=== PATIENT | male | born 1980 | race Caucasian/White ===

== ENCOUNTER 2017-01-24 12:48 | Day surgery (SDC) | payer OTHER ==
[~2017-01-24] VITALS: Ht 193 cm; Wt 102.9 kg
[~2017-01-24 12:48] MED LIST: ACET325 PO; AMOX500 PO; Antivert25 MG PO; BACITO TOP; Benadryl 50 mg50 MG PO; CRUTCH4 USE; CYCL10 PO; Cipro500 MG PO; Culturelle1 CAP PO; DIPATR PO; ERYT.5TO OD; Flagyl500 MG PO; HYDACE25S PR; HYDACE5 PO; HYDR1TAB94 PO; IBUP600 PO; IBUP800 PO; INDO25 PO; LEVFLO500 PO; LEVO750 PO; LOPE2C PO; METR500 PO; NAPR500 PO; NAPR500EC PO; NAPR550 PO; OFLO.3OPSO OP; ONDA8ODT MM; OXYACE5T PO; PENVK500 PO; PRED20 PO; PROACE100 PO; PROCODE120 PO; Percocet 5-3251 EACH PO; QUET25 PO; RXDIPATR PO; RXHYDACE PO; RXNAPNA550 PO; RXPROACE PO; SULTRISS PO; TRAM50 PO; Ultram50 MG PO; Zofran Odt4 MG SL; Zofran4 MG PO; [UNRECOGNIZED DRUG - OTHER]
--- NOTE | 2017-01-24 13:32 | NUR ---
01/24/17 1332 Jayla Tamayo 1 MISSED IV IN RH BY [facility] VALVE 1 GOOD IV IN RAC B Y [facility] PT TOW
[2017-01-24 15:44] LABS: Adenovirus F 40/41 Not Detected (NOT DETECT); Astrovirus Not Detected (NOT DETECT); Campylobacter Sp Not Detected (NOT DETECT); Cryptosporidium Not Detected (NOT DETECT); Cyclospora Cayetanensis Not Detected (NOT DETECT); E. Coli O157 Not Detected (NOT DETECT); Entamoeba Histolytica Not Detected (NOT DETECT); Enteroaggregative E. coli-EAEC Not Detected (NOT DETECT); Enteropathogenic E. coli-EPEC Not Detected (NOT DETECT); Enterotoxigenic E. coli-ETEC Not Detected (NOT DETECT); Giardia Lamblia Not Detected (NOT DETECT); Norovirus GI/GII Not Detected (NOT DETECT); Plesiomonas Shigelloides Not Detected (NOT DETECT); Rotavirus A Not Detected (NOT DETECT); Salmonella Sp Not Detected (NOT DETECT); Sapovirus Not Detected (NOT DETECT); Shiga Toxin-prod E. coli-STEC Not Detected (NOT DETECT); Shigella/Enteroin E. coli-EIEC Not Detected (NOT DETECT); Vibrio Cholerae Not Detected (NOT DETECT); Vibrio Sp Not Detected (NOT DETECT); Yersinia Enterocolitica Not Detected (NOT DETECT)
[2017-02-04] MEDS ORDERED: IBUP800 PO (21:56)
[2017-02-09] MEDS ORDERED: SERT25 PO (14:24)
== END 2017-01-24 15:15 | disposition home or self-care (01) ==
LOC: ORSCSDS 12:48
PROVIDERS: Internal Medicine Gastroenterology
PROC: 0DBE8ZX Excision of Large Intestine, Via Natural or Artificial Opening Endoscopic, Diagnostic (ICD-10-PCS; principal; 2017-01-24 14:00)
DX: K52.9 Noninfective gastroenteritis and colitis, unspecified (principal); K64.8 Other hemorrhoids; F17.210 Nicotine dependence, cigarettes, uncomplicated
CPT/HCPCS: 83993; 87507; 88305; J7120

== ENCOUNTER 2018-03-11 18:46 | Emergency (ER) | payer BC ==
[~2018-03-11] VITALS: Ht 193 cm; Wt 117.9 kg
[~2018-03-11 18:46] MED LIST changes: +SERT25 PO
[2018-03-11] MEDS ORDERED: ADAL40PEN (18:56)
[2018-03-11 20:51] LABS: BASOPHILS ABSOLUTE AUTO 0.04 K/mm3 (0.00-0.23); BASOPHILS PERCENT AUTO 0 % (0-2); EOSINOPHILS ABSOLUTE AUTO 0.27 K/mm3 (0.00-0.68); EOSINOPHILS PERCENT AUTO 3 % (0-6); Hemoglobin 12.8 g/dL (13.5-17.5); IMMATURE GRAN ABSOLUTE AUTO 0.01 K/mm3 (0.00-0.10); IMMATURE GRAN PERCENT AUTO 0 % (0-1); LYMPHOCYTES PERCENT AUTO 38 % (21-46); MONOCYTES ABSOLUTE AUTO 0.59 K/mm3 (0.16-1.47); MONOCYTES PERCENT AUTO 7 % (4-13); Mean Corpuscular HGB 30.9 pg (26.0-34.0); Mean Corpuscular HGB Conc 32.8 g/dL (31.5-36.5); Mean Corpuscular Volume 94 fL (80-100); Mean Platelet Volume 9.5 fL (9.1-12.4); NEUTROPHILS ABSOLUTE AUTO 4.64 K/mm3 (1.96-9.15); NEUTROPHILS PERCENT AUTO 52 % (41-73); Platelet Count 277 K/mm3 (150-400); RDW Coefficient Variation 13.2 % (11.7-14.2); RDW Standard Deviation 45.6 fL (35.1-46.3); Red Blood Cell Count 4.14 M/mm3 (4.30-5.90); White Blood Cell Count 8.95 K/mm3 (4.00-11.30)
[2018-03-11 21:08] LABS: Alanine Aminotransfer (ALT/SGP 34 U/L (12-78); Albumin, Blood 3.6 g/dL (3.4-5.0); Albumin/Globulin Ratio 1.1 (0.8-1.8); Alk Phos 67 U/L (50-136); Anion Gap 7 mmol/L (6-16); Aspartate Aminotrans (AST/SGOT 20 U/L (12-37); Bilirubin, Total 0.1 mg/dL (0.1-1.0); Blood Urea Nitrogen 7 mg/dL (8-24); CO2, Blood 26 mmol/L (21-32); Calcium, Blood 8.2 mg/dL (8.5-10.1); Chloride, Blood 105 mmol/L (98-108); Creatinine, Blood 0.88 mg/dL (0.60-1.20); Globulin, Blood 3.4 g/dL (2.2-4.0); Glomerular Filtration Rate >60 (60-); Glucose, Blood 110 mg/dL (70-99); Potassium, Blood 3.8 mmol/L (3.5-5.5); Sodium, Blood 138 mmol/L (136-145)
[2018-03-11] MEDS ORDERED: RECTICARE30 GM PR (22:00)
[2018-03-11] MEDS ORDERED: Norco 5-325 Ta1 EACH PO (22:00)
[2018-03-11] MEDS ORDERED: IBUP800 PO (22:00)
== END 2018-03-11 22:28 | disposition home or self-care (01) ==
LOC: ER 18:46
PROVIDERS: Emergency Medicine
DX: K64.4 Residual hemorrhoidal skin tags (principal); Z79.899 Other long term (current) drug therapy; Z88.8 Allergy status to other drugs, medicaments and biological substances; F17.210 Nicotine dependence, cigarettes, uncomplicated
CPT/HCPCS: 36415; 72193; 80053; 85025; 96374; 96375; 99283-25; J1170; J2405; Q9967

== ENCOUNTER 2018-09-21 14:22 | Emergency (ER) | payer OTHER ==
[~2018-09-21] VITALS: Ht 193 cm; Wt 117.9 kg
[~2018-09-21 14:22] MED LIST changes: +ADAL40PEN; +Norco 5-325 Ta1 EACH PO; +RECTICARE30 GM PR
[2018-09-21 15:00] LABS: BASOPHILS ABSOLUTE AUTO 0.07 K/mm3 (0.00-0.23); BASOPHILS PERCENT AUTO 1 % (0-2); EOSINOPHILS ABSOLUTE AUTO 0.36 K/mm3 (0.00-0.68); EOSINOPHILS PERCENT AUTO 3 % (0-6); Hematocrit 40.5 % (37.0-53.0); Hemoglobin 13.3 g/dL (13.5-17.5); IMMATURE GRAN ABSOLUTE AUTO 0.09 K/mm3 (0.00-0.10); IMMATURE GRAN PERCENT AUTO 1 % (0-1); LYMPHOCYTES ABSOLUTE AUTO 2.91 K/mm3 (0.84-5.20); LYMPHOCYTES PERCENT AUTO 20 % (21-46); MONOCYTES ABSOLUTE AUTO 1.04 K/mm3 (0.16-1.47); MONOCYTES PERCENT AUTO 7 % (4-13); Mean Corpuscular HGB 30.4 pg (26.0-34.0); Mean Corpuscular HGB Conc 32.8 g/dL (31.5-36.5); Mean Corpuscular Volume 93 fL (80-100); Mean Platelet Volume 9.4 fL (9.1-12.4); NEUTROPHILS PERCENT AUTO 70 % (41-73); Platelet Count 404 K/mm3 (150-400); RDW Coefficient Variation 13.2 % (11.7-14.2); RDW Standard Deviation 45.3 fL (35.1-46.3); Red Blood Cell Count 4.38 M/mm3 (4.30-5.90); White Blood Cell Count 14.67 K/mm3 (4.00-11.30)
[2018-09-21 15:21] LABS: Source, Urine Clean Catch
[2018-09-21 15:27] LABS: Alanine Aminotransfer (ALT/SGP 30 U/L (12-78); Albumin, Blood 3.6 g/dL (3.4-5.0); Albumin/Globulin Ratio 0.8 (0.8-1.8); Alk Phos 84 U/L (50-136); Anion Gap 4 mmol/L (6-16); Aspartate Aminotrans (AST/SGOT 23 U/L (12-37); Bilirubin, Total 0.3 mg/dL (0.1-1.0); Blood Urea Nitrogen 7 mg/dL (8-24); Bun/Creatinine Ratio 8.9 (12.0-20.0); CO2, Blood 27 mmol/L (21-32); Calcium, Blood 8.8 mg/dL (8.5-10.1); Chloride, Blood 106 mmol/L (98-108); Creatinine, Blood 0.79 mg/dL (0.60-1.20); Globulin, Blood 4.6 g/dL (2.2-4.0); Glomerular Filtration Rate >60 (60-); Glucose, Blood 89 mg/dL (70-99); Potassium, Blood 3.9 mmol/L (3.5-5.5); Sodium, Blood 137 mmol/L (136-145); Total Protein, Blood 8.2 g/dL (6.4-8.2)
[2018-09-21 15:41] LABS: Bilirubin, Urine Neg (Neg); Blood, Urine 2+ (Neg); Glucose Qualitative, Urine Neg (Neg); Ketones, Urine Neg (Neg); Leukocyte Esterase, Urine Neg (Neg); Nitrite, Urine Neg (Neg); Protein, Urine Neg (Neg); Specific Gravity, Urine 1.015 (1.003-1.022); Urobilinogen, Urine NORM (Normal)
[2018-09-21 16:03] LABS: Appearance, Urine Clear (Clear); Color, Urine Yellow (P-Yellow)
[2018-09-21 16:05] LABS: Bacteria Rare /hpf; Red Blood Cells, Urine 0-2 /hpf (0-2); Squamous Epithelial Cells Rare /hpf (Few); White Blood Cells, Urine 0-2 /hpf (0-5)
[2018-09-21] MEDS ORDERED: BUDESONIDE EC3 MG PO (18:36)
[2018-09-21] MEDS ORDERED: METR500 PO (18:36)
[2018-09-21] MEDS ORDERED: CIPR500 PO (18:36)
[2018-09-21] MEDS ORDERED: ONDA4ODT MM (18:36)
== END 2018-09-21 19:06 | disposition home or self-care (01) ==
LOC: ER 14:22
PROVIDERS: Physician Assistant
DX: K50.90 Crohn's disease, unspecified, without complications (principal); F31.9 Bipolar disorder, unspecified; Z88.8 Allergy status to other drugs, medicaments and biological substances; Z91.030 Bee allergy status
CPT/HCPCS: 36415; 76705; 80053; 81001; 83690; 85025; 96361; 96374; 96375; 99284-25; A9270-GY; J1170; J2405; J7030

== ENCOUNTER 2018-10-06 19:31 | Emergency (ER) | payer OTHER ==
[~2018-10-06] VITALS: Ht 193 cm; Wt 117.9 kg
[~2018-10-06 19:31] MED LIST changes: +BUDESONIDE EC3 MG PO; +CIPR500 PO; +ONDA4ODT MM
[2018-10-06 21:07] LABS: BASOPHILS ABSOLUTE AUTO 0.07 K/mm3 (0.00-0.23); BASOPHILS PERCENT AUTO 1 % (0-2); EOSINOPHILS ABSOLUTE AUTO 0.27 K/mm3 (0.00-0.68); EOSINOPHILS PERCENT AUTO 2 % (0-6); Hematocrit 39.6 % (37.0-53.0); Hemoglobin 12.6 g/dL (13.5-17.5); IMMATURE GRAN ABSOLUTE AUTO 0.08 K/mm3 (0.00-0.10); IMMATURE GRAN PERCENT AUTO 1 % (0-1); LYMPHOCYTES ABSOLUTE AUTO 2.99 K/mm3 (0.84-5.20); LYMPHOCYTES PERCENT AUTO 22 % (21-46); MONOCYTES ABSOLUTE AUTO 1.44 K/mm3 (0.16-1.47); MONOCYTES PERCENT AUTO 11 % (4-13); Mean Corpuscular HGB 29.8 pg (26.0-34.0); Mean Corpuscular HGB Conc 31.8 g/dL (31.5-36.5); Mean Corpuscular Volume 94 fL (80-100); Mean Platelet Volume 9.3 fL (9.1-12.4); NEUTROPHILS PERCENT AUTO 65 % (41-73); Platelet Count 417 K/mm3 (150-400); RDW Coefficient Variation 13.9 % (11.7-14.2); RDW Standard Deviation 47.6 fL (35.1-46.3); Red Blood Cell Count 4.23 M/mm3 (4.30-5.90); White Blood Cell Count 13.75 K/mm3 (4.00-11.30)
[2018-10-06 21:22] LABS: Alanine Aminotransfer (ALT/SGP 27 U/L (12-78); Albumin, Blood 3.5 g/dL (3.4-5.0); Albumin/Globulin Ratio 0.8 (0.8-1.8); Alk Phos 85 U/L (50-136); Anion Gap 9 mmol/L (6-16); Aspartate Aminotrans (AST/SGOT 14 U/L (12-37); Bilirubin, Total 0.2 mg/dL (0.1-1.0); Blood Urea Nitrogen 5 mg/dL (8-24); Bun/Creatinine Ratio 6.8 (12.0-20.0); CO2, Blood 26 mmol/L (21-32); Calcium, Blood 8.6 mg/dL (8.5-10.1); Chloride, Blood 103 mmol/L (98-108); Creatinine, Blood 0.74 mg/dL (0.60-1.20); Globulin, Blood 4.5 g/dL (2.2-4.0); Glomerular Filtration Rate >60 (60-); Glucose, Blood 81 mg/dL (70-99); Sodium, Blood 138 mmol/L (136-145)
[2018-10-06 23:35] LABS: Source, Urine Voided
[2018-10-06 23:44] LABS: Bilirubin, Urine Neg (Neg); Blood, Urine 1+ (Neg); Glucose Qualitative, Urine Neg (Neg); Ketones, Urine Neg (Neg); Leukocyte Esterase, Urine Neg (Neg); Nitrite, Urine Neg (Neg); Protein, Urine Neg (Neg); Urobilinogen, Urine NORM (Normal); pH, Urine 6.5 (5.0-8.0)
[2018-10-06 23:56] LABS: Appearance, Urine Clear (Clear); Color, Urine Yellow (P-Yellow)
[2018-10-06 23:57] LABS: Bacteria Not Seen /hpf; Red Blood Cells, Urine 0-2 /hpf (0-2); Squamous Epithelial Cells Not Seen /hpf (Few); White Blood Cells, Urine Not Seen /hpf (0-5)
[2018-10-07] MEDS ORDERED: Bentyl20 MG PO (01:11)
[2018-10-07] MEDS ORDERED: Percocet 5-3251 EACH PO (01:11)
== END 2018-10-07 01:56 | disposition home or self-care (01) ==
LOC: ER 19:31
PROVIDERS: Emergency Medicine
DX: K52.9 Noninfective gastroenteritis and colitis, unspecified (principal); Z91.030 Bee allergy status; Z88.8 Allergy status to other drugs, medicaments and biological substances; Z79.899 Other long term (current) drug therapy; Z87.891 Personal history of nicotine dependence
CPT/HCPCS: 36415; 74177; 80053; 81001; 83605; 83690; 85025; 96361; 96374-59; 96375; 96376; 99284-25; J0500; J1885; J2270; J2405; J2930; J7030; Q9967

== ENCOUNTER 2018-11-17 18:23 | Emergency (ER) | payer OTHER ==
[~2018-11-17] VITALS: Ht 185.4 cm; Wt 117.9 kg
[~2018-11-17 18:23] MED LIST changes: +Bentyl20 MG PO
[2018-11-17] MEDS ORDERED: CYCL10 PO (19:45)
[2018-11-17] MEDS ORDERED: DELTASONE20 MG PO (19:45)
== END 2018-11-17 20:09 | disposition home or self-care (01) ==
LOC: ER 18:23
DX: G89.29 Other chronic pain (principal); M54.5 Low back pain; M54.6 Pain in thoracic spine; F17.210 Nicotine dependence, cigarettes, uncomplicated; Z91.030 Bee allergy status; Z88.8 Allergy status to other drugs, medicaments and biological substances
CPT/HCPCS: 96372; 99283-25; J1885; J7512

== ENCOUNTER 2019-01-04 00:34 | Day surgery (SDC) | payer OTHER ==
[~2019-01-04 00:34] MED LIST changes: +DELTASONE20 MG PO
== END 2019-01-04 16:44 | disposition home or self-care (01) ==
LOC: ATC 00:34
DX: K50.90 Crohn's disease, unspecified, without complications (principal); Z87.891 Personal history of nicotine dependence; Z88.8 Allergy status to other drugs, medicaments and biological substances
CPT/HCPCS: A9270; J1720; J7050; Q0163; Q5103

== ENCOUNTER 2019-03-04 00:13 | Day surgery (SDC) | payer OTHER | END 2019-03-04 16:55 | disposition home or self-care (01) | LOC: ATC 00:13 | DX: K50.10 Crohn's disease of large intestine without complications (principal); Z79.52 Long term (current) use of systemic steroids; Z79.899 Other long term (current) drug therapy; Z88.8 Allergy status to other drugs, medicaments and biological substances; Z91.030 Bee allergy status; Z87.891 Personal history of nicotine dependence | CPT/HCPCS: 96375; 96413; 96415; A9270; J0171; J1720; J7050; J7512; Q0163; Q5103 ==

== ENCOUNTER 2019-07-08 20:21 | Emergency (ER) | payer BC, OTHER ==
[2019-07-08] MEDS ORDERED: ATHLETIC FOOT C30 GM TOP (22:10)
[2019-07-08] MEDS ORDERED: CEPH500 PO (22:10)
== END 2019-07-08 22:28 | disposition home or self-care (01) ==
DX: B35.1 Tinea unguium (principal); B35.3 Tinea pedis; F17.210 Nicotine dependence, cigarettes, uncomplicated; Z91.030 Bee allergy status; Z88.8 Allergy status to other drugs, medicaments and biological substances

== ENCOUNTER 2019-11-29 01:41 | Day surgery (SDC) | payer BC, OTHER ==
[~2019-11-29 01:41] MED LIST changes: +ATHLETIC FOOT C30 GM TOP; +CEPH500 PO; +INFLECTRA100 MG PO
--- NOTE | 2019-11-29 09:24 | NUR ---
BENEDRYL: 25MG IV PUSH GIVEN NOT 50MG IV SEEN ON EMAR
[2019-11-29] MEDS ORDERED: Remicade100 MG (09:31)
== END 2019-11-29 12:00 | disposition home or self-care (01) ==
LOC: ATC 01:41
DX: K50.10 Crohn's disease of large intestine without complications (principal); Z87.891 Personal history of nicotine dependence; Z88.8 Allergy status to other drugs, medicaments and biological substances
CPT/HCPCS: 96375; 96413; 96415; A9270; J1200; J7050; Q5103

== ENCOUNTER 2019-12-13 01:59 | Day surgery (SDC) | payer BC, OTHER ==
[~2019-12-13 01:59] MED LIST changes: +Remicade100 MG
[2019-12-13 08:57] LABS: BASOPHILS ABSOLUTE AUTO 0.06 K/mm3 (0.00-0.23); BASOPHILS PERCENT AUTO 1 % (0-2); EOSINOPHILS ABSOLUTE AUTO 0.23 K/mm3 (0.00-0.68); EOSINOPHILS PERCENT AUTO 3 % (0-6); Hematocrit 38.5 % (37.0-53.0); Hemoglobin 12.6 g/dL (13.5-17.5); IMMATURE GRAN ABSOLUTE AUTO 0.02 K/mm3 (0.00-0.10); IMMATURE GRAN PERCENT AUTO 0 % (0-1); LYMPHOCYTES ABSOLUTE AUTO 3.22 K/mm3 (0.84-5.20); LYMPHOCYTES PERCENT AUTO 38 % (21-46); MONOCYTES ABSOLUTE AUTO 0.58 K/mm3 (0.16-1.47); MONOCYTES PERCENT AUTO 7 % (4-13); Mean Corpuscular HGB 29.7 pg (26.0-34.0); Mean Corpuscular HGB Conc 32.7 g/dL (31.5-36.5); Mean Corpuscular Volume 91 fL (80-100); Mean Platelet Volume 9.5 fL (9.1-12.4); NEUTROPHILS ABSOLUTE AUTO 4.36 K/mm3 (1.96-9.15); NEUTROPHILS PERCENT AUTO 52 % (41-73); Platelet Count 292 K/mm3 (150-400); RDW Coefficient Variation 13.5 % (11.7-14.2); RDW Standard Deviation 44.8 fL (35.1-46.3); Red Blood Cell Count 4.24 M/mm3 (4.30-5.90); White Blood Cell Count 8.47 K/mm3 (4.00-11.30)
[2019-12-13 09:16] LABS: Alanine Aminotransfer (ALT/SGP 48 U/L (12-78); Albumin, Blood 3.9 g/dL (3.4-5.0); Albumin/Globulin Ratio 1.1 (0.8-1.8); Alk Phos 74 U/L (50-136); Anion Gap 6 mmol/L (6-16); Aspartate Aminotrans (AST/SGOT 23 U/L (12-37); Bilirubin, Total 0.3 mg/dL (0.1-1.0); Blood Urea Nitrogen 10 mg/dL (8-24); Bun/Creatinine Ratio 13.5 (12.0-20.0); CO2, Blood 25 mmol/L (21-32); Calcium, Blood 8.6 mg/dL (8.5-10.1); Chloride, Blood 108 mmol/L (98-108); Creatinine, Blood 0.74 mg/dL (0.60-1.20); Globulin, Blood 3.6 g/dL (2.2-4.0); Glomerular Filtration Rate >60 (60-); Glucose, Blood 96 mg/dL (70-99); Potassium, Blood 3.5 mmol/L (3.5-5.5); Sodium, Blood 139 mmol/L (136-145); Total Protein, Blood 7.5 g/dL (6.4-8.2)
== END 2019-12-13 12:05 | disposition home or self-care (01) ==
LOC: ATC 01:59
PROVIDERS: Internal Medicine Gastroenterology
DX: K50.919 Crohn's disease, unspecified, with unspecified complications (principal); F17.200 Nicotine dependence, unspecified, uncomplicated; Z79.899 Other long term (current) drug therapy; Z88.8 Allergy status to other drugs, medicaments and biological substances; Z91.048 Other nonmedicinal substance allergy status
CPT/HCPCS: 80053; 85025; 96375; 96413; A9270; J1200; J1745; J7050; Q5103

== ENCOUNTER 2020-07-27 19:23 | Inpatient (IN) | payer OTHER ==
[~2020-07-27] VITALS: Ht 193 cm; Wt 127.9 kg
[2020-07-27 19:53] LABS: BASOPHILS ABSOLUTE AUTO 0.06 K/mm3 (0.00-0.23); BASOPHILS PERCENT AUTO 1 % (0-2); EOSINOPHILS ABSOLUTE AUTO 0.27 K/mm3 (0.00-0.68); EOSINOPHILS PERCENT AUTO 2 % (0-6); Hematocrit 38.6 % (37.0-53.0); Hemoglobin 13.1 g/dL (13.5-17.5); IMMATURE GRAN ABSOLUTE AUTO 0.06 K/mm3 (0.00-0.10); IMMATURE GRAN PERCENT AUTO 1 % (0-1); LYMPHOCYTES ABSOLUTE AUTO 3.17 K/mm3 (0.84-5.20); LYMPHOCYTES PERCENT AUTO 24 % (21-46); MONOCYTES ABSOLUTE AUTO 0.81 K/mm3 (0.16-1.47); MONOCYTES PERCENT AUTO 6 % (4-13); Mean Corpuscular HGB Conc 33.9 g/dL (31.5-36.5); Mean Corpuscular Volume 88 fL (80-100); Mean Platelet Volume 9.4 fL (9.1-12.4); NEUTROPHILS ABSOLUTE AUTO 8.89 K/mm3 (1.96-9.15); NEUTROPHILS PERCENT AUTO 67 % (41-73); Platelet Count 310 K/mm3 (150-400); RDW Coefficient Variation 13.5 % (11.7-14.2); Red Blood Cell Count 4.37 M/mm3 (4.30-5.90); White Blood Cell Count 13.26 K/mm3 (4.00-11.30)
[2020-07-27 20:30] LABS: Alanine Aminotransfer (ALT/SGP 37 U/L (12-78); Albumin, Blood 3.8 g/dL (3.4-5.0); Albumin/Globulin Ratio 0.9 (0.8-1.8); Alk Phos 70 U/L (50-136); Anion Gap 8 mmol/L (6-16); Aspartate Aminotrans (AST/SGOT 20 U/L (12-37); Bilirubin, Total 0.2 mg/dL (0.1-1.0); Blood Urea Nitrogen 6 mg/dL (8-24); Bun/Creatinine Ratio 7.4 (12.0-20.0); CO2, Blood 26 mmol/L (21-32); Calcium, Blood 8.4 mg/dL (8.5-10.1); Chloride, Blood 101 mmol/L (98-108); Creatinine, Blood 0.81 mg/dL (0.60-1.20); Globulin, Blood 4.1 g/dL (2.2-4.0); Glomerular Filtration Rate >60 (60-); Glucose, Blood 152 mg/dL (70-99); Potassium, Blood 3.1 mmol/L (3.5-5.5); Sodium, Blood 135 mmol/L (136-145); Total Protein, Blood 7.9 g/dL (6.4-8.2)
[2020-07-27] MEDS ORDERED: HUMIRA PEN40 MG/0.2 SQ (21:12)
[2020-07-27] MEDS ORDERED: DULO30 PO (21:14)
[2020-07-27] MEDS ORDERED: IBU800 M1 PO (22:03)
[2020-07-27] MEDS ORDERED: ZEBUTAL PO (22:03)
[2020-07-27 22:18] LABS: Appearance, CSF Clear (Clear); Color, CSF No Color (No Color); RBC Count, CSF 4 /mm3 (0-0); WBC Count, CSF 112 /mm3 (0-5)
[2020-07-27 22:21] LABS: Glucose, CSF 68 mg/dL (40-70)
[2020-07-27 22:26] LABS: RBC Count, CSF 16 /mm3 (0-0); WBC Count, CSF 57 /mm3 (0-5)
[2020-07-27 22:27] LABS: Appearance, CSF Clear (Clear); Color, CSF No Color (No Color)
[2020-07-27 22:29] LABS: Lymphocytes, CSF 64 % (40-80); Monocytes, CSF 31 % (15-45); Neutrophils, CSF 5 % (0-6)
[2020-07-27 22:31] LABS: Lymphocytes, CSF 48 % (40-80); Monocytes, CSF 48 % (15-45); Neutrophils, CSF 4 % (0-6)
[2020-07-28 01:30] LABS: Cryptococcus Neoformans/Gattii Not Detected (NOT DETECT); Enterovirus Not Detected (NOT DETECT); Escherichia Coli K1 Not Detected (NOT DETECT); Haemophilus Influenza Not Detected (NOT DETECT); Herpes Simplex Virus 1 Not Detected (NOT DETECT); Herpes Simplex Virus 2 Detected (NOT DETECT); Human Herpesvirus 6 Not Detected (NOT DETECT); Human Parechovirus Not Detected (NOT DETECT); Listeria Monocytogenes Not Detected (NOT DETECT); Neisseria Meningitidis Not Detected (NOT DETECT); Streptococcus Agalactiae Not Detected (NOT DETECT); Streptococcus Pneumoniae Not Detected (NOT DETECT); Varicella Zoster Virus Not Detected (NOT DETECT)
[2020-07-28 08:01] LABS: BASOPHILS ABSOLUTE AUTO 0.01 K/mm3 (0.00-0.23); BASOPHILS PERCENT AUTO 0 % (0-2); EOSINOPHILS ABSOLUTE AUTO 0.01 K/mm3 (0.00-0.68); EOSINOPHILS PERCENT AUTO 0 % (0-6); Hematocrit 38.8 % (37.0-53.0); Hemoglobin 12.6 g/dL (13.5-17.5); IMMATURE GRAN ABSOLUTE AUTO 0.05 K/mm3 (0.00-0.10); IMMATURE GRAN PERCENT AUTO 0 % (0-1); LYMPHOCYTES PERCENT AUTO 9 % (21-46); MONOCYTES ABSOLUTE AUTO 0.17 K/mm3 (0.16-1.47); MONOCYTES PERCENT AUTO 1 % (4-13); Mean Corpuscular HGB 29.6 pg (26.0-34.0); Mean Corpuscular HGB Conc 32.5 g/dL (31.5-36.5); Mean Corpuscular Volume 91 fL (80-100); Mean Platelet Volume 9.7 fL (9.1-12.4); NEUTROPHILS ABSOLUTE AUTO 11.15 K/mm3 (1.96-9.15); NEUTROPHILS PERCENT AUTO 89 % (41-73); Platelet Count 288 K/mm3 (150-400); RDW Coefficient Variation 13.4 % (11.7-14.2); RDW Standard Deviation 44.6 fL (35.1-46.3); Red Blood Cell Count 4.26 M/mm3 (4.30-5.90); White Blood Cell Count 12.49 K/mm3 (4.00-11.30)
[2020-07-28 08:39] LABS: Alanine Aminotransfer (ALT/SGP 34 U/L (12-78); Albumin, Blood 3.5 g/dL (3.4-5.0); Albumin/Globulin Ratio 0.9 (0.8-1.8); Alk Phos 63 U/L (50-136); Anion Gap 5 mmol/L (6-16); Aspartate Aminotrans (AST/SGOT 17 U/L (12-37); Bilirubin, Total 0.4 mg/dL (0.1-1.0); Blood Urea Nitrogen 6 mg/dL (8-24); Bun/Creatinine Ratio 8.2 (12.0-20.0); CO2, Blood 24 mmol/L (21-32); Calcium, Blood 8.3 mg/dL (8.5-10.1); Chloride, Blood 105 mmol/L (98-108); Creatinine, Blood 0.74 mg/dL (0.60-1.20); Globulin, Blood 3.9 g/dL (2.2-4.0); Glomerular Filtration Rate >60 (60-); Glucose, Blood 175 mg/dL (70-99); Potassium, Blood 4.2 mmol/L (3.5-5.5); Sodium, Blood 134 mmol/L (136-145); Total Protein, Blood 7.4 g/dL (6.4-8.2)
[2020-08-02 04:50] LABS: BASOPHILS ABSOLUTE AUTO 0.05 K/mm3 (0.00-0.23); BASOPHILS PERCENT AUTO 1 % (0-2); EOSINOPHILS ABSOLUTE AUTO 0.27 K/mm3 (0.00-0.68); EOSINOPHILS PERCENT AUTO 3 % (0-6); Hematocrit 40.5 % (37.0-53.0); Hemoglobin 13.3 g/dL (13.5-17.5); IMMATURE GRAN ABSOLUTE AUTO 0.12 K/mm3 (0.00-0.10); IMMATURE GRAN PERCENT AUTO 1 % (0-1); LYMPHOCYTES ABSOLUTE AUTO 3.63 K/mm3 (0.84-5.20); LYMPHOCYTES PERCENT AUTO 38 % (21-46); MONOCYTES PERCENT AUTO 9 % (4-13); Mean Corpuscular HGB 29.5 pg (26.0-34.0); Mean Corpuscular HGB Conc 32.8 g/dL (31.5-36.5); Mean Corpuscular Volume 90 fL (80-100); Mean Platelet Volume 9.4 fL (9.1-12.4); NEUTROPHILS ABSOLUTE AUTO 4.69 K/mm3 (1.96-9.15); NEUTROPHILS PERCENT AUTO 49 % (41-73); Platelet Count 267 K/mm3 (150-400); RDW Coefficient Variation 13.3 % (11.7-14.2); RDW Standard Deviation 43.5 fL (35.1-46.3); Red Blood Cell Count 4.51 M/mm3 (4.30-5.90); White Blood Cell Count 9.66 K/mm3 (4.00-11.30)
[2020-08-02 05:13] LABS: Anion Gap 2 mmol/L (6-16); Blood Urea Nitrogen 11 mg/dL (8-24); Bun/Creatinine Ratio 11.3 (12.0-20.0); CO2, Blood 32 mmol/L (21-32); Calcium, Blood 8.7 mg/dL (8.5-10.1); Chloride, Blood 102 mmol/L (98-108); Creatinine, Blood 0.97 mg/dL (0.60-1.20); Glomerular Filtration Rate >60 (60-); Glucose, Blood 99 mg/dL (70-99); Potassium, Blood 4.2 mmol/L (3.5-5.5); Sodium, Blood 136 mmol/L (136-145)
[2020-08-05] MEDS ORDERED: ACET325 PO (13:09)
[2020-08-05] MEDS ORDERED: FENTANYL1 EA10 TOP (13:10)
[2020-08-05] MEDS ORDERED: IBUP400 PO (13:11)
[2020-08-05] MEDS ORDERED: NARCAN4 M1 (13:11)
[2020-08-05] MEDS ORDERED: ACYC800 PO (13:12)
[2020-08-05] MEDS ORDERED: FENTANYL1 EAC7 TOP (13:13)
== END 2020-08-05 13:53 | disposition home or self-care (01) | DRG 75 ==
LOC: ER 19:23 → MEDS 19:24
PROVIDERS: Emergency Medicine; Family Medicine; Physician Assistant; ADMIT Internal Medicine
PROC: 009U3ZX Drainage of Spinal Canal, Percutaneous Approach, Diagnostic (ICD-10-PCS; principal; 2020-07-27)
DX: B00.3 Herpesviral meningitis (principal); K50.90 Crohn's disease, unspecified, without complications; E87.6 Hypokalemia; Z20.822 Contact with and (suspected) exposure to COVID-19; F31.9 Bipolar disorder, unspecified; Z87.891 Personal history of nicotine dependence; F91.3 Oppositional defiant disorder
CPT/HCPCS: 36415; 62270; 70450; 80048; 80053; 82945; 84157; 85025; 86403; 87070; 87205; 87483; 89051; 96365-59; 96366; 96375-59; 96376; 99285-25; A9270; G0378; J0133; J0696; J1100; J1170; J1650; J2765; J7030; J7060

== ENCOUNTER 2020-08-09 20:20 | Observation (INO) | payer OTHER ==
[~2020-08-09] VITALS: Ht 193 cm; Wt 127.8 kg
[~2020-08-09 20:20] MED LIST changes: +ACYC800 PO; +DULO30 PO; +FENTANYL1 EA10 TOP; +FENTANYL1 EAC7 TOP; +HUMIRA PEN40 MG/0.2 SQ; +IBU800 M1 PO; +IBUP400 PO; +NARCAN4 M1; +ZEBUTAL PO
[2020-08-09 21:00] LABS: BASOPHILS ABSOLUTE AUTO 0.04 K/mm3 (0.00-0.23); BASOPHILS PERCENT AUTO 0 % (0-2); EOSINOPHILS ABSOLUTE AUTO 0.18 K/mm3 (0.00-0.68); EOSINOPHILS PERCENT AUTO 2 % (0-6); Hematocrit 40.4 % (37.0-53.0); Hemoglobin 13.7 g/dL (13.5-17.5); IMMATURE GRAN ABSOLUTE AUTO 0.03 K/mm3 (0.00-0.10); IMMATURE GRAN PERCENT AUTO 0 % (0-1); LYMPHOCYTES ABSOLUTE AUTO 0.96 K/mm3 (0.84-5.20); LYMPHOCYTES PERCENT AUTO 9 % (21-46); MONOCYTES ABSOLUTE AUTO 0.65 K/mm3 (0.16-1.47); MONOCYTES PERCENT AUTO 6 % (4-13); Mean Corpuscular HGB 30.3 pg (26.0-34.0); Mean Corpuscular HGB Conc 33.9 g/dL (31.5-36.5); Mean Corpuscular Volume 89 fL (80-100); Mean Platelet Volume 9.2 fL (9.1-12.4); NEUTROPHILS ABSOLUTE AUTO 9.02 K/mm3 (1.96-9.15); NEUTROPHILS PERCENT AUTO 83 % (41-73); Platelet Count 248 K/mm3 (150-400); RDW Standard Deviation 44.9 fL (35.1-46.3); Red Blood Cell Count 4.52 M/mm3 (4.30-5.90); White Blood Cell Count 10.88 K/mm3 (4.00-11.30)
[2020-08-09 21:23] LABS: Alanine Aminotransfer (ALT/SGP 49 U/L (12-78); Albumin, Blood 3.7 g/dL (3.4-5.0); Albumin/Globulin Ratio 0.9 (0.8-1.8); Alk Phos 66 U/L (50-136); Anion Gap 9 mmol/L (6-16); Aspartate Aminotrans (AST/SGOT 28 U/L (12-37); Bilirubin, Total 0.3 mg/dL (0.1-1.0); Blood Urea Nitrogen 12 mg/dL (8-24); Bun/Creatinine Ratio 13.6 (12.0-20.0); CO2, Blood 22 mmol/L (21-32); Calcium, Blood 8.6 mg/dL (8.5-10.1); Chloride, Blood 106 mmol/L (98-108); Creatinine, Blood 0.88 mg/dL (0.60-1.20); Globulin, Blood 4.1 g/dL (2.2-4.0); Glomerular Filtration Rate >60 (60-); Glucose, Blood 125 mg/dL (70-99); Potassium, Blood 3.5 mmol/L (3.5-5.5); Sodium, Blood 137 mmol/L (136-145); Total Protein, Blood 7.8 g/dL (6.4-8.2)
[2020-08-10] LABS: Appearance, CSF Clear (Clear); Color, CSF No Color (No Color); RBC Count, CSF 8 /mm3 (0-0); WBC Count, CSF 160 /mm3 (0-5)
[2020-08-10 00:01] LABS: Glucose, CSF 55 mg/dL (40-70)
[2020-08-10 00:17] LABS: Appearance, CSF Hazy (Clear); Color, CSF Pink (No Color); RBC Count, CSF 410 /mm3 (0-0)
[2020-08-10 00:18] LABS: WBC Count, CSF 157 /mm3 (0-5)
[2020-08-10 00:19] LABS: Lymphocytes, CSF 97 % (40-80); Monocytes, CSF 3 % (15-45)
[2020-08-10 00:24] LABS: Lymphocytes, CSF 85 % (40-80); Monocytes, CSF 8 % (15-45); Neutrophils, CSF 8 % (0-6)
[2020-08-10 00:59] LABS: Cryptococcus Neoformans/Gattii Not Detected (NOT DETECT); Enterovirus Not Detected (NOT DETECT); Escherichia Coli K1 Not Detected (NOT DETECT); Haemophilus Influenza Not Detected (NOT DETECT); Herpes Simplex Virus 1 Not Detected (NOT DETECT); Herpes Simplex Virus 2 Not Detected (NOT DETECT); Human Herpesvirus 6 Not Detected (NOT DETECT); Human Parechovirus Not Detected (NOT DETECT); Listeria Monocytogenes Not Detected (NOT DETECT); Neisseria Meningitidis Not Detected (NOT DETECT); Streptococcus Agalactiae Not Detected (NOT DETECT); Streptococcus Pneumoniae Not Detected (NOT DETECT); Varicella Zoster Virus Not Detected (NOT DETECT)
[2020-08-10 05:24] LABS: BASOPHILS ABSOLUTE AUTO 0.04 K/mm3 (0.00-0.23); BASOPHILS PERCENT AUTO 1 % (0-2); EOSINOPHILS ABSOLUTE AUTO 0.12 K/mm3 (0.00-0.68); EOSINOPHILS PERCENT AUTO 2 % (0-6); Hematocrit 35.1 % (37.0-53.0); Hemoglobin 11.9 g/dL (13.5-17.5); IMMATURE GRAN ABSOLUTE AUTO 0.02 K/mm3 (0.00-0.10); IMMATURE GRAN PERCENT AUTO 0 % (0-1); LYMPHOCYTES ABSOLUTE AUTO 1.57 K/mm3 (0.84-5.20); LYMPHOCYTES PERCENT AUTO 20 % (21-46); MONOCYTES ABSOLUTE AUTO 0.87 K/mm3 (0.16-1.47); MONOCYTES PERCENT AUTO 11 % (4-13); Mean Corpuscular HGB 30.6 pg (26.0-34.0); Mean Corpuscular HGB Conc 33.9 g/dL (31.5-36.5); Mean Corpuscular Volume 90 fL (80-100); Mean Platelet Volume 9.2 fL (9.1-12.4); NEUTROPHILS ABSOLUTE AUTO 5.32 K/mm3 (1.96-9.15); NEUTROPHILS PERCENT AUTO 67 % (41-73); Platelet Count 212 K/mm3 (150-400); RDW Coefficient Variation 14.1 % (11.7-14.2); RDW Standard Deviation 45.2 fL (35.1-46.3); Red Blood Cell Count 3.89 M/mm3 (4.30-5.90); White Blood Cell Count 7.94 K/mm3 (4.00-11.30)
[2020-08-10 05:47] LABS: Alanine Aminotransfer (ALT/SGP 37 U/L (12-78); Albumin, Blood 3.2 g/dL (3.4-5.0); Albumin/Globulin Ratio 0.9 (0.8-1.8); Alk Phos 56 U/L (50-136); Anion Gap 7 mmol/L (6-16); Aspartate Aminotrans (AST/SGOT 18 U/L (12-37); Bilirubin, Total 0.4 mg/dL (0.1-1.0); Blood Urea Nitrogen 11 mg/dL (8-24); Bun/Creatinine Ratio 12.5 (12.0-20.0); CO2, Blood 23 mmol/L (21-32); Calcium, Blood 7.9 mg/dL (8.5-10.1); Chloride, Blood 108 mmol/L (98-108); Creatinine, Blood 0.88 mg/dL (0.60-1.20); Globulin, Blood 3.4 g/dL (2.2-4.0); Glomerular Filtration Rate >60 (60-); Glucose, Blood 118 mg/dL (70-99); Potassium, Blood 3.3 mmol/L (3.5-5.5); Sodium, Blood 138 mmol/L (136-145); Total Protein, Blood 6.6 g/dL (6.4-8.2)
[2020-08-10] MEDS ORDERED: HYDR1TAB94 PO (17:57)
[2020-08-10] MEDS ORDERED: VALACYCLOVIR1000 M1 PO (17:58)
--- NOTE | 2020-08-10 18:21 | NUR ---
DISCHARGE SUMMARY PATIENT ARRIVED TO THE FLOOR FROM THE ED EARLY THIS AFTERNOON. PATIENT ALERT, ORIENTED, INDEPENDENT UPON ARRIVAL. PATIENT STATES HEADACHE 08/29 UPON ARRIVAL. PATIENT RECEINTLY DISCHARGED FOR VIRAL MENINGITIS. PATIENT ADMINISTERED IV ANTIVIRAL AND TORADOL THIS SHIFT. PATIENT DOWN FOR MRI MID AFTERNOON. IN ROOM AFTER MRI TO DISCUSS MRI FINDINGS, NO ABNORMALITIES. PATIENT DISCHARGED TO HOME. IV REMOVED PRIOR TO DISCHARGE. DISCHARGE AND MEDICATION INSTRUCTIONS REVIEWED WITH PATIENT. PATIENT STATES NO QUESTIONS AT THIS TIME. PATIENT DRESSED INDEPENDENTLY. PATIENT WALKED OFF THE FLOOR, DENIES NEED FOR WHEELCHAIR.
== END 2020-08-10 18:21 | disposition home or self-care (01) ==
LOC: ER 20:20 → ERHOLD 20:21 → MEDS 08-10 13:52
PROVIDERS: Emergency Medicine; Physician Assistant; ADMIT Internal Medicine
PROC: 009U3ZX Drainage of Spinal Canal, Percutaneous Approach, Diagnostic (ICD-10-PCS; principal; 2020-08-09)
DX: R51.9 Headache, unspecified (principal); K50.90 Crohn's disease, unspecified, without complications; D72.829 Elevated white blood cell count, unspecified; F31.9 Bipolar disorder, unspecified; F17.210 Nicotine dependence, cigarettes, uncomplicated; Z88.8 Allergy status to other drugs, medicaments and biological substances; Z91.030 Bee allergy status
CPT/HCPCS: 36415; 62270; 70553; 80053; 82945; 84157; 85025; 86592; 86618; 87070; 87205; 87252; 87254; 87483; 89051; 93005; 93010; 96365-59; 96366; 96367; 96372; 96375; 96375-59; 99285-25; A9270; A9579; G0378; J0133; J1200; J1650; J1885; J2060; J2765; J3010; J3475; J7030; J7050; J7060

== ENCOUNTER → 2021-01-20 | Outpatient (CLI) | payer OTHER ==
[~2021-01-20] MED LIST changes: +Bupropion Xl150 MG PO; +HUMIRA PEN40 MG/0.2 SC; +OMEP20ER PO; +Prinivil10 MG PO; +VALACYCLOVIR1000 M1 PO
[2021-01-20 19:57] LABS: BASOPHILS ABSOLUTE AUTO 0.07 K/mm3 (0.00-0.23); BASOPHILS PERCENT AUTO 1 % (0-2); EOSINOPHILS ABSOLUTE AUTO 0.16 K/mm3 (0.00-0.68); EOSINOPHILS PERCENT AUTO 1 % (0-6); Hematocrit 42.3 % (37.0-53.0); Hemoglobin 14.2 g/dL (13.5-17.5); IMMATURE GRAN ABSOLUTE AUTO 0.03 K/mm3 (0.00-0.10); IMMATURE GRAN PERCENT AUTO 0 % (0-1); LYMPHOCYTES ABSOLUTE AUTO 4.32 K/mm3 (0.84-5.20); LYMPHOCYTES PERCENT AUTO 36 % (21-46); MONOCYTES ABSOLUTE AUTO 0.92 K/mm3 (0.16-1.47); MONOCYTES PERCENT AUTO 8 % (4-13); Mean Corpuscular HGB 30.9 pg (26.0-34.0); Mean Corpuscular HGB Conc 33.6 g/dL (31.5-36.5); Mean Corpuscular Volume 92 fL (80-100); Mean Platelet Volume 9.6 fL (9.1-12.4); NEUTROPHILS ABSOLUTE AUTO 6.42 K/mm3 (1.96-9.15); NEUTROPHILS PERCENT AUTO 54 % (41-73); Platelet Count 374 K/mm3 (150-400); RDW Coefficient Variation 14.5 % (11.7-14.2); RDW Standard Deviation 48.6 fL (35.1-46.3); White Blood Cell Count 11.92 K/mm3 (4.00-11.30)
[2021-01-20 20:16] LABS: Alanine Aminotransfer (ALT/SGP 77 U/L (12-78); Albumin, Blood 4.4 g/dL (3.4-5.0); Albumin/Globulin Ratio 1.1 (0.8-1.8); Alk Phos 82 U/L (50-136); Anion Gap 8 mmol/L (6-16); Aspartate Aminotrans (AST/SGOT 41 U/L (12-37); Bilirubin, Total 0.6 mg/dL (0.1-1.0); Blood Urea Nitrogen 8 mg/dL (8-24); CHOL/HDL RATIO 3.8; CO2, Blood 24 mmol/L (21-32); Calcium, Blood 9.4 mg/dL (8.5-10.1); Chloride, Blood 105 mmol/L (98-108); Cholesterol 188 mg/dL (50-200); Globulin, Blood 3.9 g/dL (2.2-4.0); Glomerular Filtration Rate >60 (60-); Glucose, Blood 93 mg/dL (70-99); HDL Cholesterol 50 mg/dL (>39); LDL/HDL RATIO 2.3; Low Density Lipoprotein Chol 114 mg/dL (0-110); Potassium, Blood 3.5 mmol/L (3.5-5.5); Sodium, Blood 137 mmol/L (136-145); Total Protein, Blood 8.3 g/dL (6.4-8.2); Triglycerides 121 mg/dL (30-160); Very Low Density Lipoprot Chol 24 mg/dL (6-32)
[2021-01-22 07:09] LABS: HIV SCREEN 4TH GENERATION WRFX Non Reactive (Non Reactive)
== END | disposition home or self-care (01) ==
LOC: LAB SHORT 19:06 → LAB 19:06
PROVIDERS: Physician Assistant
DX: Z00.00 Encounter for general adult medical examination without abnormal findings (principal); Z13.6 Encounter for screening for cardiovascular disorders; I10 Essential (primary) hypertension; G47.61 Periodic limb movement disorder
CPT/HCPCS: 80053; 80061; 82728; 84443; 85025; 87389

== ENCOUNTER 2021-03-13 15:59 | Inpatient (IN) | payer OTHER ==
[~2021-03-13] VITALS: Ht 193 cm; Wt 136.1 kg
[~2021-03-13 15:59] MED LIST changes: -DULO30 PO
[2021-03-13 16:45] LABS: BASOPHILS ABSOLUTE AUTO 0.03 K/mm3 (0.00-0.23); BASOPHILS PERCENT AUTO 1 % (0-2); EOSINOPHILS ABSOLUTE AUTO 0.06 K/mm3 (0.00-0.68); EOSINOPHILS PERCENT AUTO 1 % (0-6); Hematocrit 39.8 % (37.0-53.0); Hemoglobin 13.3 g/dL (13.5-17.5); IMMATURE GRAN ABSOLUTE AUTO 0.02 K/mm3 (0.00-0.10); IMMATURE GRAN PERCENT AUTO 0 % (0-1); LYMPHOCYTES ABSOLUTE AUTO 0.86 K/mm3 (0.84-5.20); LYMPHOCYTES PERCENT AUTO 15 % (21-46); MONOCYTES ABSOLUTE AUTO 1.17 K/mm3 (0.16-1.47); MONOCYTES PERCENT AUTO 21 % (4-13); Mean Corpuscular HGB 31.4 pg (26.0-34.0); Mean Corpuscular HGB Conc 33.4 g/dL (31.5-36.5); Mean Corpuscular Volume 94 fL (80-100); Mean Platelet Volume 9.2 fL (9.1-12.4); NEUTROPHILS ABSOLUTE AUTO 3.57 K/mm3 (1.96-9.15); NEUTROPHILS PERCENT AUTO 62 % (41-73); Platelet Count 283 K/mm3 (150-400); RDW Coefficient Variation 14.4 % (11.7-14.2); RDW Standard Deviation 49.3 fL (35.1-46.3); Red Blood Cell Count 4.24 M/mm3 (4.30-5.90); White Blood Cell Count 5.71 K/mm3 (4.00-11.30)
[2021-03-13 17:11] LABS: Alanine Aminotransfer (ALT/SGP 67 U/L (12-78); Albumin/Globulin Ratio 1.1 (0.8-1.8); Alk Phos 73 U/L (50-136); Anion Gap 8 mmol/L (6-16); Aspartate Aminotrans (AST/SGOT 45 U/L (12-37); Bilirubin, Total 0.2 mg/dL (0.1-1.0); Blood Urea Nitrogen 10 mg/dL (8-24); Bun/Creatinine Ratio 8.3 (12.0-20.0); CO2, Blood 27 mmol/L (21-32); Calcium, Blood 8.8 mg/dL (8.5-10.1); Chloride, Blood 102 mmol/L (98-108); Creatinine, Blood 1.21 mg/dL (0.60-1.20); Globulin, Blood 3.7 g/dL (2.2-4.0); Glomerular Filtration Rate >60 (60-); Glucose, Blood 110 mg/dL (70-99); Potassium, Blood 3.6 mmol/L (3.5-5.5); Sodium, Blood 137 mmol/L (136-145); Total Protein, Blood 7.7 g/dL (6.4-8.2)
[2021-03-13] MEDS ORDERED: ZESTORETIC 20-121 EA PO (19:27)
[2021-03-14 04:47] LABS: BASOPHILS ABSOLUTE AUTO 0.01 K/mm3 (0.00-0.23); BASOPHILS PERCENT AUTO 0 % (0-2); EOSINOPHILS PERCENT AUTO 0 % (0-6); Hemoglobin 12.4 g/dL (13.5-17.5); IMMATURE GRAN ABSOLUTE AUTO 0.02 K/mm3 (0.00-0.10); IMMATURE GRAN PERCENT AUTO 1 % (0-1); LYMPHOCYTES ABSOLUTE AUTO 0.69 K/mm3 (0.84-5.20); LYMPHOCYTES PERCENT AUTO 18 % (21-46); MONOCYTES ABSOLUTE AUTO 0.09 K/mm3 (0.16-1.47); MONOCYTES PERCENT AUTO 2 % (4-13); Mean Corpuscular HGB 30.9 pg (26.0-34.0); Mean Corpuscular HGB Conc 32.6 g/dL (31.5-36.5); Mean Corpuscular Volume 95 fL (80-100); Mean Platelet Volume 9.3 fL (9.1-12.4); NEUTROPHILS ABSOLUTE AUTO 3.04 K/mm3 (1.96-9.15); NEUTROPHILS PERCENT AUTO 79 % (41-73); Platelet Count 267 K/mm3 (150-400); RDW Coefficient Variation 14.2 % (11.7-14.2); RDW Standard Deviation 50.3 fL (35.1-46.3); Red Blood Cell Count 4.01 M/mm3 (4.30-5.90); White Blood Cell Count 3.85 K/mm3 (4.00-11.30)
[2021-03-14 05:07] LABS: Alanine Aminotransfer (ALT/SGP 63 U/L (12-78); Albumin, Blood 3.5 g/dL (3.4-5.0); Albumin/Globulin Ratio 0.9 (0.8-1.8); Alk Phos 69 U/L (50-136); Anion Gap 11 mmol/L (6-16); Aspartate Aminotrans (AST/SGOT 32 U/L (12-37); Bilirubin, Total 0.4 mg/dL (0.1-1.0); Blood Urea Nitrogen 11 mg/dL (8-24); Bun/Creatinine Ratio 11.8 (12.0-20.0); CO2, Blood 21 mmol/L (21-32); Calcium, Blood 8.4 mg/dL (8.5-10.1); Chloride, Blood 102 mmol/L (98-108); Creatinine, Blood 0.93 mg/dL (0.60-1.20); Globulin, Blood 3.7 g/dL (2.2-4.0); Glomerular Filtration Rate >60 (60-); Glucose, Blood 293 mg/dL (70-99); Potassium, Blood 4.3 mmol/L (3.5-5.5); Sodium, Blood 134 mmol/L (136-145); Total Protein, Blood 7.2 g/dL (6.4-8.2)
--- NOTE | 2021-03-14 08:48 | NUR ---
SUMMARY PT WITH STABLE NEURO CHECKS.VERB GOOD CONTROL OF H/A WITH USE OF DILAUDID.
--- NOTE | 2021-03-14 16:20 | NUR ---
SHIFT SUMMARY PT AxOx4. PLEASANT AND COOPERATIVE WITH CARE. PT REPORTS CONSTANT HEADACHE. MEDICATED PER [facility]. LUMBAR PUNCTURE ORDERED FOR TOMORROW. PER [facility], TELE RUNNING [facility]. MED LIST UPDATED. PT CURRENTLY RESTING IN BED WITH CALL LIGHT IN REACH. VITALS REVIEWED. DENIES ANY NEEDS AT THIS TIME.
[2021-03-14 21:22] LABS: Vancomycin, Trough 15.4 ug/mL (5.0-10.0)
--- NOTE | 2021-03-15 05:14 | NUR ---
AOX4 PLEASANT ABLE TO VOICE NEEDS CONT OF HEADACHE SEVERAL TIME REQUESTED FOR PAIN MEDICATION ADM PER ORDERED WITH POSTIVE EFFECT .CONT ABT/IV NO ADVANCE REACTION NOTED
[2021-03-15 08:34] LABS: International Normalized Ratio 1.01; Prothrombin Time Results 10.6 Sec (9.7-11.5)
[2021-03-15 10:44] LABS: Automated CSF WBC Count 0.003 K/mm3 (0-5); WBC Count, CSF 3 /mm3 (0-5)
[2021-03-15 11:19] LABS: Influenza A, PCR NEGATIVE (NEGATIVE); Influenza B, PCR NEGATIVE (NEGATIVE); Resp Syncytial Virus, PCR NEGATIVE (NEGATIVE)
[2021-03-15 11:22] LABS: RBC Count, CSF 0 /mm3 (0-0)
[2021-03-15 11:25] LABS: Appearance, CSF Clear (Clear); Color, CSF No Color (No Color); Lymphocytes, CSF 80 % (40-80); Monocytes, CSF 18 % (15-45); Neutrophils, CSF 2 % (0-6)
[2021-03-15 11:28] LABS: SARS-Cov-2 (COVID-19) PCR, MMC POSITIVE (NEGATIVE)
--- NOTE | 2021-03-15 11:50 | NUR ---
DR. OWEN NOTIFIED PT COVID TEST RESULT IS POSITIVE.
[2021-03-15 12:43] LABS: Cryptococcus Neoformans/Gattii Not Detected (NOT DETECT); Enterovirus Not Detected (NOT DETECT); Escherichia Coli K1 Not Detected (NOT DETECT); Haemophilus Influenza Not Detected (NOT DETECT); Herpes Simplex Virus 1 Not Detected (NOT DETECT); Herpes Simplex Virus 2 Not Detected (NOT DETECT); Human Herpesvirus 6 Not Detected (NOT DETECT); Human Parechovirus Not Detected (NOT DETECT); Listeria Monocytogenes Not Detected (NOT DETECT); Neisseria Meningitidis Not Detected (NOT DETECT); Streptococcus Agalactiae Not Detected (NOT DETECT); Streptococcus Pneumoniae Not Detected (NOT DETECT); Varicella Zoster Virus Not Detected (NOT DETECT)
--- NOTE | 2021-03-15 18:19 | NUR ---
PATIENT DX COVID POSITIVE TODAY. AFTER FINDING THIS, PATIENT REFUSED TO CONTINUE TO BE TREATED WITH ACYCLOVIR. PATIENT REPORTS THAT HE WISHES TO SPEAK WITH THE PROVIDER. PATIENT WANTS TO BE TREATED WITH A SPECIFIC MEDICATION AND THE PROVIDER STATED THAT THIS IS FOR HOME USE, NOT HOSPITAL USE. PATIENT IS UPSET WITH THIS INFORMATION AND SAID THAT HE WILL LEAVE TO FIND A PLACE TO TREAT HIM IF THE PROVIDER WILL NOT ORDER THE MEDICATION WHEN HE TALKS WITH HER. PATIENT HAS PAIN IN THE BACK/BASE OF HEAD. AFTER MEDICATION, THE PAIN IS MANAGED. PATIENT REPORTS VERTIGO UPON STANDING, AND THE PRESSURE IN HIS HEAD INCREASES WHEN HE STANDS. PATIENT IS NOT SOB OR COUGHING. PATIENT IS ALERT AND ORIENTATED.
--- NOTE | 2021-03-16 03:34 | NUR ---
SHIFT SUMMARY PATIENT AOX4 CALM AND PLEASANT AGREE TO TAKE ZOVIRAX AT 1999.PHARMACY MADE AWARE THE DOSE MISSED MD AWARE TO .
[2021-03-16] MEDS ORDERED: DULO30 PO (13:15)
[2021-03-16] MEDS ORDERED: VISBIOME 112.51 EACH PO (13:23)
--- NOTE | 2021-03-16 14:26 | NUR ---
DISCHARGE PATIENT WAS DISCHARGED TO HOME AT 1420. HE WAS BROUGHT OUT TO [facility] VIA WHEELCHAIR. HIS TRANSPORTED TO HOME VIA AUTOMOBILE. PATIENT WAS PROVIDED EDUCATION ON NEW MEDICATION, INSTRUCTIONS ON WHERE TO PATIENT ADMITTING REPRESENTATIVE MEDICATION. PATIENT WAS PROVIDED EDUCATION ON COVID-19. A FOLLOW UP APT WAS MADE WITH THE PATIENTS PRIMARY CARE AND PATIENT WAS NOTIFIED OF THE APPT. THE PATIENTS IV WAS REMOVED AND THE PATIENT HAD NO FURTHER CONCERNS OR QUESTIONS.
--- NOTE | 2021-03-16 19:05 | NUR ---
MEDICATION ADM DILAUDID 1MG WAS GIVEN AT 4AM
== END 2021-03-16 14:19 | disposition home or self-care (01) | DRG 75 ==
LOC: ER 15:59 → MEDS 16:00
PROVIDERS: Family Medicine; Nurse Practitioner Acute Care; Physician Assistant; ADMIT Internal Medicine
PROC: 8E0ZXY6 Isolation (ICD-10-PCS; principal; 2021-03-15)
PROC: 009U3ZX Drainage of Spinal Canal, Percutaneous Approach, Diagnostic (ICD-10-PCS; 2021-03-15)
DX: A87.9 Viral meningitis, unspecified (principal); U07.1 COVID-19; K50.90 Crohn's disease, unspecified, without complications; D84.9 Immunodeficiency, unspecified; Z88.8 Allergy status to other drugs, medicaments and biological substances; I10 Essential (primary) hypertension; F31.9 Bipolar disorder, unspecified; G47.33 Obstructive sleep apnea (adult) (pediatric); E66.1 Drug-induced obesity; E66.01 Morbid (severe) obesity due to excess calories; Z98.890 Other specified postprocedural states
CPT/HCPCS: 0241U; 36415; 62270; 80053; 80202; 82945; 83735; 84157; 85025; 85610; 87040; 87070; 87205; 87483; 89051; 94762; 96361-59; 96365-59; 96366; 96375; 96375-59; 96376; 99285-25; A9270; G0378; J0133; J0692; J0696; J1100; J1170; J1885; J2405; J3370; J7030; J7050; J7060

== ENCOUNTER 2021-05-20 08:43 | Day surgery (SDC) | payer OTHER ==
[~2021-05-20] VITALS: Ht 190.5 cm; Wt 131.6 kg
[~2021-05-20 08:43] MED LIST changes: +DULO30 PO; +VISBIOME 112.51 EACH PO; +ZESTORETIC 20-121 EA PO
--- NOTE | 2021-05-20 10:40 | NUR ---
05/20/21 1040 CAROLINA ISABEL [address] GO AT BEDSIDE AND SITE CHECK. PT TOLERATED BLOCK
--- NOTE | 2021-05-20 12:28 | NUR ---
05/20/21 1228 ZOILA DEL CASTILLO PAIN 11/29 FENTANYL 50MCG GIVEN IV. DAWSON AT BEDSIDE.
== END 2021-05-20 13:40 | disposition home or self-care (01) ==
LOC: ORSCSDS 08:43
PROVIDERS: Orthopaedic Surgery
PROC: 0RNJ4ZZ Release Right Shoulder Joint, Percutaneous Endoscopic Approach (ICD-10-PCS; principal; 2021-05-20 10:00)
PROC: 0LS34ZZ Reposition Right Upper Arm Tendon, Percutaneous Endoscopic Approach (ICD-10-PCS; principal; 2021-05-20 10:00)
PROC: 0LQ14ZZ Repair Right Shoulder Tendon, Percutaneous Endoscopic Approach (ICD-10-PCS; principal; 2021-05-20 10:00)
DX: M75.111 Incomplete rotator cuff tear or rupture of right shoulder, not specified as traumatic (principal); M75.21 Bicipital tendinitis, right shoulder; M75.41 Impingement syndrome of right shoulder; G47.33 Obstructive sleep apnea (adult) (pediatric); Z86.16 Personal history of COVID-19; E66.9 Obesity, unspecified; Z68.36 Body mass index [BMI] 36.0-36.9, adult; Z79.899 Other long term (current) drug therapy; Z87.891 Personal history of nicotine dependence
CPT/HCPCS: A9270; C1713; J0171; J0690; J1100; J2250; J2370; J2405; J2704; J3010; J7120

== ENCOUNTER 2022-11-04 06:10 | Emergency (ER) | payer OTHER ==
[~2022-11-04] VITALS: Ht 190.5 cm; Wt 124.7 kg
[2022-11-04 06:34] VITALS: BP 137/87
[2022-11-04] MEDS ORDERED: STELARA90 MG/1 ML (06:40)
== END 2022-11-04 07:05 | disposition home or self-care (01) ==
LOC: ER 06:10
DX: T63.441A Toxic effect of venom of bees, accidental (unintentional), initial encounter (principal); I10 Essential (primary) hypertension; Z88.2 Allergy status to sulfonamides; Z88.8 Allergy status to other drugs, medicaments and biological substances; Z87.19 Personal history of other diseases of the digestive system; Z79.899 Other long term (current) drug therapy; Z87.891 Personal history of nicotine dependence
CPT/HCPCS: 99283; A9270

== ENCOUNTER 2023-01-03 23:05 | Emergency (ER) | payer OTHER ==
[~2023-01-03] VITALS: Ht 190.5 cm; Wt 122.5 kg
[~2023-01-03 23:05] MED LIST changes: +STELARA90 MG/1 ML
[2023-01-03 23:09] VITALS: BP 157/93
[2023-01-03 23:46] LABS: BASOPHILS ABSOLUTE AUTO 0.05 K/mm3 (0.00-0.23); BASOPHILS PERCENT AUTO 1 % (0-2); EOSINOPHILS ABSOLUTE AUTO 0.19 K/mm3 (0.00-0.68); EOSINOPHILS PERCENT AUTO 2 % (0-6); Hematocrit 37.4 % (37.0-53.0); Hemoglobin 12.8 g/dL (13.5-17.5); IMMATURE GRAN ABSOLUTE AUTO 0.02 K/mm3 (0.00-0.10); IMMATURE GRAN PERCENT AUTO 0 % (0-1); LYMPHOCYTES ABSOLUTE AUTO 2.81 K/mm3 (0.84-5.20); LYMPHOCYTES PERCENT AUTO 28 % (21-46); MONOCYTES ABSOLUTE AUTO 0.76 K/mm3 (0.16-1.47); MONOCYTES PERCENT AUTO 8 % (4-13); Mean Corpuscular HGB 30.3 pg (26.0-34.0); Mean Corpuscular HGB Conc 34.2 g/dL (31.5-36.5); Mean Corpuscular Volume 89 fL (80-100); Mean Platelet Volume 9.6 fL (9.1-12.4); NEUTROPHILS ABSOLUTE AUTO 6.09 K/mm3 (1.96-9.15); NEUTROPHILS PERCENT AUTO 61 % (41-73); Platelet Count 330 K/mm3 (150-400); RDW Coefficient Variation 13.3 % (11.7-14.2); RDW Standard Deviation 43.5 fL (35.1-46.3); Red Blood Cell Count 4.22 M/mm3 (4.30-5.90); White Blood Cell Count 9.92 K/mm3 (4.00-11.30)
[2023-01-04 00:05] LABS: Albumin, Blood 3.8 g/dL (3.4-5.0); Albumin/Globulin Ratio 1.1 (0.8-1.8); Bilirubin, Total 0.3 mg/dL (0.1-1.0); Bun/Creatinine Ratio 6.2 (12.0-20.0); Calcium, Blood 8.4 mg/dL (8.5-10.1); Creatinine, Blood 1.12 mg/dL (0.60-1.20); Globulin, Blood 3.4 g/dL (2.2-4.0); Potassium, Blood 3.4 mmol/L (3.5-5.5); Total Protein, Blood 7.2 g/dL (6.4-8.2)
== END 2023-01-04 02:55 | disposition home or self-care (01) ==
LOC: ER 23:05
PROVIDERS: Emergency Medicine
DX: R10.84 Generalized abdominal pain (principal); F31.9 Bipolar disorder, unspecified; F17.210 Nicotine dependence, cigarettes, uncomplicated; Z88.2 Allergy status to sulfonamides; Z88.8 Allergy status to other drugs, medicaments and biological substances; Z79.899 Other long term (current) drug therapy
CPT/HCPCS: 74177; 80053; 84484; 85025; 93005; 93010; 99284-25; J1170; J1885; Q9967

== ENCOUNTER 2023-02-10 01:45 | Emergency (ER) | payer OTHER ==
[~2023-02-10] VITALS: Ht 190.5 cm; Wt 113.4 kg
[2023-02-10 02:20] LABS: BASOPHILS ABSOLUTE AUTO 0.06 K/mm3 (0.00-0.23); BASOPHILS PERCENT AUTO 1 % (0-2); EOSINOPHILS ABSOLUTE AUTO 0.11 K/mm3 (0.00-0.68); EOSINOPHILS PERCENT AUTO 1 % (0-6); Hematocrit 42.6 % (37.0-53.0); Hemoglobin 14.3 g/dL (13.5-17.5); IMMATURE GRAN ABSOLUTE AUTO 0.04 K/mm3 (0.00-0.10); IMMATURE GRAN PERCENT AUTO 0 % (0-1); LYMPHOCYTES ABSOLUTE AUTO 3.02 K/mm3 (0.84-5.20); LYMPHOCYTES PERCENT AUTO 24 % (21-46); MONOCYTES ABSOLUTE AUTO 0.74 K/mm3 (0.16-1.47); MONOCYTES PERCENT AUTO 6 % (4-13); Mean Corpuscular HGB 30.3 pg (26.0-34.0); Mean Corpuscular HGB Conc 33.6 g/dL (31.5-36.5); Mean Corpuscular Volume 90 fL (80-100); Mean Platelet Volume 9.2 fL (9.1-12.4); NEUTROPHILS ABSOLUTE AUTO 8.83 K/mm3 (1.96-9.15); NEUTROPHILS PERCENT AUTO 69 % (41-73); Platelet Count 316 K/mm3 (150-400); RDW Coefficient Variation 13.6 % (11.7-14.2); RDW Standard Deviation 45.2 fL (35.1-46.3); Red Blood Cell Count 4.72 M/mm3 (4.30-5.90)
[2023-02-10 02:37] LABS: Albumin, Blood 3.7 g/dL (3.4-5.0); Bilirubin, Total 0.3 mg/dL (0.1-1.0); Bun/Creatinine Ratio 12.5 (12.0-20.0); Calcium, Blood 8.6 mg/dL (8.5-10.1); Creatinine, Blood 0.88 mg/dL (0.60-1.20); Globulin, Blood 3.6 g/dL (2.2-4.0); Potassium, Blood 3.8 mmol/L (3.5-5.5); Total Protein, Blood 7.3 g/dL (6.4-8.2)
[2023-02-10 08:00] LABS: Source, Urine Clean Catch
[2023-02-10 08:18] LABS: Appearance, Urine Clear (Clear); Bilirubin, Urine Neg (Neg); Blood, Urine Neg (Neg); Color, Urine Yellow (P-Yellow); Glucose Qualitative, Urine Neg (Neg); Ketones, Urine Neg (Neg); Leukocyte Esterase, Urine Neg (Neg); Nitrite, Urine Neg (Neg); Protein, Urine 1+ (Neg); Specific Gravity, Urine 1.025 (1.003-1.022); Urobilinogen, Urine NORM (Normal)
[2023-02-10] MEDS ORDERED: TRAM50 PO (08:40)
[2023-02-10 09:30] VITALS: BP 123/86
== END 2023-02-10 09:53 | disposition home or self-care (01) ==
LOC: ER 01:45
PROVIDERS: Emergency Medicine
DX: R10.30 Lower abdominal pain, unspecified (principal); E86.0 Dehydration; F31.9 Bipolar disorder, unspecified; F17.210 Nicotine dependence, cigarettes, uncomplicated; Z79.899 Other long term (current) drug therapy; Z88.2 Allergy status to sulfonamides; Z88.8 Allergy status to other drugs, medicaments and biological substances; Z87.19 Personal history of other diseases of the digestive system
CPT/HCPCS: 80053; 85025; 96361; 96374; 96375; 96376; 99284-25; J1885; J2270; J2405; J7030

== ENCOUNTER 2023-02-19 13:52 | Emergency (ER) | payer OTHER ==
[~2023-02-19] VITALS: Ht 190.5 cm; Wt 104.3 kg
[2023-02-19 15:09] LABS: BASOPHILS ABSOLUTE AUTO 0.05 K/mm3 (0.00-0.23); BASOPHILS PERCENT AUTO 1 % (0-2); EOSINOPHILS PERCENT AUTO 1 % (0-6); Hemoglobin 14.9 g/dL (13.5-17.5); IMMATURE GRAN ABSOLUTE AUTO 0.02 K/mm3 (0.00-0.10); IMMATURE GRAN PERCENT AUTO 0 % (0-1); LYMPHOCYTES ABSOLUTE AUTO 2.61 K/mm3 (0.84-5.20); LYMPHOCYTES PERCENT AUTO 25 % (21-46); MONOCYTES PERCENT AUTO 8 % (4-13); Mean Corpuscular HGB 30.4 pg (26.0-34.0); Mean Corpuscular HGB Conc 33.9 g/dL (31.5-36.5); Mean Corpuscular Volume 90 fL (80-100); Mean Platelet Volume 9.2 fL (9.1-12.4); NEUTROPHILS ABSOLUTE AUTO 6.98 K/mm3 (1.96-9.15); NEUTROPHILS PERCENT AUTO 66 % (41-73); Platelet Count 358 K/mm3 (150-400); RDW Coefficient Variation 13.4 % (11.7-14.2); RDW Standard Deviation 44.3 fL (35.1-46.3); White Blood Cell Count 10.56 K/mm3 (4.00-11.30)
[2023-02-19 15:24] LABS: Albumin, Blood 4.1 g/dL (3.4-5.0); Albumin/Globulin Ratio 1.1 (0.8-1.8); Bilirubin, Total 0.4 mg/dL (0.1-1.0); Calcium, Blood 8.9 mg/dL (8.5-10.1); Creatinine, Blood 0.85 mg/dL (0.60-1.20); Globulin, Blood 3.9 g/dL (2.2-4.0); Potassium, Blood 3.4 mmol/L (3.5-5.5)
[2023-02-19 19:45] VITALS: BP 139/99
[2023-02-19] MEDS ORDERED: ALBU90OI INH (19:48)
[2023-02-19] MEDS ORDERED: PRED20 PO (19:48)
== END 2023-02-19 19:58 | disposition home or self-care (01) ==
LOC: ER 13:52
PROVIDERS: Physician Assistant
DX: J40 Bronchitis, not specified as acute or chronic (principal); Z11.52 Encounter for screening for COVID-19; Z87.891 Personal history of nicotine dependence
CPT/HCPCS: 71046; 80053; 84484; 85025; 93005; 93010; 99285-25

== ENCOUNTER → 2023-02-23 | Outpatient (CLI) | payer BC, OTHER ==
[~2023-02-23] MED LIST changes: +ALBU90OI INH
[2023-02-23 20:18] LABS: Percent Saturation 31.3 % (20.0-50.0)
== END ==
LOC: LAB SHORT 17:34 → LAB 17:34
PROVIDERS: Family Medicine
DX: R53.81 Other malaise (principal); E55.9 Vitamin D deficiency, unspecified
CPT/HCPCS: 82306; 82607; 82728; 82746; 83540; 83550